=== PATIENT | female | born 1970 | race Caucasian/White ===

== ENCOUNTER → 2021-01-07 | Outpatient (CLI) | payer OTHER ==
[~2021-01-07] MED LIST: AMITRIPTYLINE H25 MG PO; CYMBALTA60 MG PO; METHOCARBAMOL500 MG PO; NEURONTIN300 MG PO; OMEPRAZOLE20 M1 PO; TOPAMAX50 MG PO
[2021-01-07 10:24] LABS: HEMOGLOBIN 12.8 gm/dl (12.3-15.3); RED BLOOD COUNT 4.47 M/UL (4.00-5.10); WHITE BLOOD COUNT 6.3 K/UL (4.5-11.0)
[2021-01-07 10:50] LABS: BUN/CREATININE RATIO 12 (0-10)
== END ==
LOC: OPSV2 09:00 → EDSTATUS 09:00 → OPSV2 09:25
PROVIDERS: Orthopaedic Surgery
DX: Z01.818 Encounter for other preprocedural examination (principal); M51.16 Intervertebral disc disorders with radiculopathy, lumbar region; I49.8 Other specified cardiac arrhythmias
CPT/HCPCS: 36415; 71046; 80048; 81001; 85027; 85610; 85730; 87081; 87086; 93005

== ENCOUNTER 2021-01-20 09:58 | Inpatient (IN) | payer OTHER ==
[~2021-01-20] VITALS: Ht 162.6 cm; Wt 107.5 kg
[2021-01-20 19:20] LABS: RED BLOOD COUNT 4.22 M/UL (4.00-5.10); WHITE BLOOD COUNT 11.5 K/UL (4.5-11.0)
[2021-01-20 19:36] LABS: BUN/CREATININE RATIO 10 (0-10)
[2021-01-21 03:28] LABS: HEMOGLOBIN 12.3 gm/dl (12.3-15.3); RED BLOOD COUNT 4.33 M/UL (4.00-5.10); WHITE BLOOD COUNT 10.3 K/UL (4.5-11.0)
[2021-01-21 04:01] LABS: BUN/CREATININE RATIO 9 (0-10)
[2021-01-22 12:36] LABS: HEMOGLOBIN 11.5 gm/dl (12.3-15.3); RED BLOOD COUNT 4.1 M/UL (4.00-5.10); WHITE BLOOD COUNT 9.8 K/UL (4.5-11.0)
[2021-01-22 12:55] LABS: BUN/CREATININE RATIO 10 (0-10)
== END 2021-01-23 13:58 | disposition home or self-care (01) | DRG 460 ==
LOC: OR 09:58 → PROG CARE 21:21 → OR 01-21 11:18 → PROG CARE 01-23 13:58
PROVIDERS: ADMIT Orthopaedic Surgery
PROC: 01NR0ZZ Release Sacral Nerve, Open Approach (ICD-10-PCS; 2021-01-20)
PROC: 00NY0ZZ Release Lumbar Spinal Cord, Open Approach (ICD-10-PCS; 2021-01-20)
PROC: 0SG3071 Fusion of Lumbosacral Joint with Autologous Tissue Substitute, Posterior Approach, Posterior Column, Open Approach (ICD-10-PCS; principal; 2021-01-20 10:00)
PROC: 01NB0ZZ Release Lumbar Nerve, Open Approach (ICD-10-PCS; 2021-01-20 10:00)
DX: M51.16 Intervertebral disc disorders with radiculopathy, lumbar region (principal); Z68.41 Body mass index [BMI] 40.0-44.9, adult; M48.061 Spinal stenosis, lumbar region without neurogenic claudication; M79.7 Fibromyalgia; E66.01 Morbid (severe) obesity due to excess calories; Z90.49 Acquired absence of other specified parts of digestive tract; Z98.51 Tubal ligation status; Z88.6 Allergy status to analgesic agent
CPT/HCPCS: 36415; 72100; 72110; 76000; 80048; 85025; 85027; 86850; 86900; 86901; 94760; 97116-GP-CQ; 97161; 97166; 97535; C1713; C1762; C1781; J0690; J1040; J1100; J2001; J2250; J2405; J2550; J2704; J2710; J3010; J3370; J7040; J7050; J7120